=== PATIENT | male | born 1935 | race Caucasian/White ===

== ENCOUNTER 2018-10-13 10:20 | Day surgery (SDC) | payer MEDICARE, BC ==
[~2018-10-13] VITALS: Ht 182.9 cm; Wt 96.5 kg
[2018-10-13] VITALS (7 sets, daily range): BP systolic 151–159; BP diastolic 61–91
[~2018-10-13 10:20] MED LIST: LIDOcaine 1% w/EPI 1:100,000 30ml vial (MDV) ONE; ceFAZolin 1000mg inj ONE; fentaNYL/PF 50MCG/1 ML 2ML syringe ONE; midazolam 2 mg/2 ml injection ONE; vancomycin 1,000mg inj ONE
[2018-10-13] MEDS ORDERED: FLAX100015 PO (11:26)
[2018-10-13] MEDS ORDERED: FLO0.4C PO (11:27)
[2018-10-13] MEDS ORDERED: PANT40VI2 IV (11:28)
[2018-10-13] MEDS ORDERED: LYR75C PO (11:29)
[2018-10-13] MEDS ORDERED: MULT1TAB74 PO (11:30)
[2018-10-13] MEDS ORDERED: AMLO10TA4 PO (11:33)
[2018-10-13] MEDS ORDERED: UBID100C16 PO (11:34)
[2018-10-13] MEDS ORDERED: CLOP75TA15 PO (11:35)
[2018-10-13] MEDS ORDERED: ASPI-41 PO (11:35)
[2018-10-13] MEDS ORDERED: ATOR10TA87 PO (11:36)
[2018-10-13] MEDS ORDERED: OMEG-166 PO (11:37)
[2018-10-13] MEDS ORDERED: NIA500ERT PO (11:38)
[2018-10-13] MEDS ORDERED: HYDR12.55 PO (11:38)
[2018-10-13] MEDS ORDERED: METF500T PO (11:40)
[2018-10-13] MEDS ORDERED: RAMI10CA69 PO (11:40)
[2018-10-13] MEDS ORDERED: GLIM4TAB79 PO (11:42)
[2018-10-13] MEDS ORDERED: INSU100V9 SQ (11:42)
[2018-10-13 12:12] LABS: BASOPHILS % (AUTO) 0.5 % (0-1); EOSINOPHILS # (AUTO) 0.2 X10'3 (0-0.9); EOSINOPHILS % (AUTO) 1.8 % (0-6); HEMATOCRIT 44.8 % (42.0-52.0); HEMOGLOBIN 15.5 g/dl (14.0-17.9); LYMPHOCYTES # (AUTO) 1.7 X10'3 (1.1-4.8); MEAN CORPUSCULAR HEMOGLOBIN 29.2 PG (27.0-31.0); MEAN CORPUSCULAR HGB CONC 34.5 g/dL (33.0-36.5); MEAN CORPUSCULAR VOLUME 84.6 FL (78-98); MEAN PLATELET VOLUME 9.4 FL (7.4-10.4); MONOCYTES # (AUTO) 0.4 X10'3 (0-0.9); MONOCYTES % (AUTO) 4.9 % (2-12); NEUTROPHILS # (AUTO) 6.4 X10'3 (1.8-7.7); NEUTROPHILS % (AUTO) 73.8 % (42-75); PLATELET COUNT 181 X10'3 (140-440); RED CELL DISTRIBUTION WIDTH 14.6 % (11.5-14.5); WHITE BLOOD COUNT 8.7 X10'3 (4.5-11.0)
[2018-10-13 12:17] LABS: ALBUMIN 4.6 G/DL (3.4-5.0); ANION GAP 9 (8-16); BLOOD UREA NITROGEN 14 MG/DL (7-18); BUN/CREATININE RATIO 15.2 (5.4-32.0); CALCIUM 9.7 MG/DL (8.5-10.1); CHLORIDE 103 MMOL/L (99-107); CREATININE 0.92 MG/DL (0.60-1.10); GLUCOSE 144 MG/DL (70-104); POTASSIUM 4.1 MMOL/L (3.5-5.1); SODIUM 140 MMOL/L (135-145); TOTAL CARBON DIOXIDE 27.6 MMOL/L (24-32); eGFR 78 ML/MIN
[2018-10-13] MEDS ORDERED: cefazolin/dext.iso 2gm/100ml 100 ML IV ONE (13:28)
[2018-10-13] MEDS ORDERED: midazolam 2 mg/2 ml injection ONE (14:07)
[2018-10-13] MEDS ORDERED: normal saline 1000ml 1,000 ML IV SCH (15:55)
== END 2018-10-13 17:00 | disposition home or self-care (01) ==
LOC: SSTAY O 10:20
PROVIDERS: ATTEND Internal Medicine Cardiovascular Disease
DX: I44.2 Atrioventricular block, complete (principal); E78.5 Hyperlipidemia, unspecified; E11.9 Type 2 diabetes mellitus without complications; I25.10 Atherosclerotic heart disease of native coronary artery without angina pectoris; I10 Essential (primary) hypertension; Z98.890 Other specified postprocedural states; Z79.4 Long term (current) use of insulin; Z79.899 Other long term (current) drug therapy; Z95.5 Presence of coronary angioplasty implant and graft; Z83.3 Family history of diabetes mellitus; Z82.49 Family history of ischemic heart disease and other diseases of the circulatory system; Z88.1 Allergy status to other antibiotic agents; Z88.8 Allergy status to other drugs, medicaments and biological substances; Z88.7 Allergy status to serum and vaccine
CPT/HCPCS: 33208; 36415; 71046; 80048; 82948; 83735; 85025; 85610; 93005; 99152; 99153; C1785; C1894; C1898; J0690; J2250; J3010; J3370; J3490; J7030; A4565; A4620

== ENCOUNTER 2020-01-01 10:40 | Day surgery (SDC) | payer MEDICARE, BC ==
[2020-01-01] VITALS (10 sets, daily range): BP systolic 125–160; BP diastolic 55–91
[~2020-01-01] VITALS: Ht 182.9 cm; Wt 93.8 kg
[~2020-01-01 10:40] MED LIST changes: +AMLO10TA4 PO; +ASPI-41 PO; +ATOR10TA87 PO; +CLOP75TA15 PO; +FLAX100015 PO; +FLO0.4C PO; +GLIM4TAB7 PO; +HYDR12.55 PO; +INSU100V9 SQ; -LIDOcaine 1% w/EPI 1:100,000 30ml vial (MDV) ONE; +LYR75C PO; +METF500T PO; +MULT-620 PO; +NIA500ERT PO; +OMEG-166 PO; +PANT40VI2 IV; +RAMI10CA69 PO; +UBID100C16 PO; -ceFAZolin 1000mg inj ONE; -fentaNYL/PF 50MCG/1 ML 2ML syringe ONE; -midazolam 2 mg/2 ml injection ONE; -vancomycin 1,000mg inj ONE
[2020-01-01] MEDS ORDERED: VANCOMYCIN 1,500MG inj. 1,500 MG in normal saline 500ml IV soln 300 ML IV ONE (11:00)
[2020-01-01] MEDS ORDERED: cefazolin/dext.iso 2gm/50ml 50 ML IV ONE (11:00)
[2020-01-01 11:41] LABS: BASOPHILS % (AUTO) 0.2 % (0-1); EOSINOPHILS # (AUTO) 0.3 X10'3 (0-0.9); HEMATOCRIT 43.5 % (42.0-52.0); HEMOGLOBIN 14.9 g/dl (14.0-17.9); LYMPHOCYTES % (AUTO) 22.7 % (21-51); MEAN CORPUSCULAR HEMOGLOBIN 29.7 PG (27.0-31.0); MEAN CORPUSCULAR HGB CONC 34.3 g/dL (33.0-36.5); MEAN CORPUSCULAR VOLUME 86.7 FL (78-98); MEAN PLATELET VOLUME 9.2 FL (7.4-10.4); MONOCYTES # (AUTO) 0.3 X10'3 (0-0.9); NEUTROPHILS % (AUTO) 70.1 % (42-75); PLATELET COUNT 163 X10'3 (140-440); RED BLOOD COUNT 5.02 X10'6 (4.70-6.10); RED CELL DISTRIBUTION WIDTH 13.8 % (11.5-14.5); WHITE BLOOD COUNT 8.6 X10'3 (4.5-11.0)
[2020-01-01 11:44] LABS: ALBUMIN 4.1 G/DL (3.4-5.0); ANION GAP 11 (8-16); BLOOD UREA NITROGEN 15 MG/DL (7-18); BUN/CREATININE RATIO 18.1 (5.4-32.0); CHLORIDE 103 MMOL/L (99-107); CREATININE 0.83 MG/DL (0.60-1.10); GLUCOSE 170 MG/DL (70-104); MAGNESIUM 1.7 MG/DL (1.5-2.4); POTASSIUM 4.3 MMOL/L (3.5-5.1); SODIUM 138 MMOL/L (135-145); TOTAL CARBON DIOXIDE 23.7 MMOL/L (24-32); eGFR 88 ML/MIN
[2020-01-01 11:47] LABS: PARTIAL THROMBOPLASTIN TIME 29 SECONDS (22-32)
[2020-01-01] MEDS ORDERED: fentaNYL/PF 50MCG/1 ML 2ML syringe ONE ×2 (14:07→15:26)
[2020-01-01] MEDS ORDERED: midazolam 2 mg/2 ml injection ONE ×3 (14:07→15:27)
[2020-01-01] MEDS ORDERED: vancomycin 1,000mg inj ONE (14:08)
[2020-01-01] MEDS ORDERED: LIDOcaine 1% W/epiNEPHrine 1:100,000 20ml vial ONE (14:08)
[2020-01-01] MEDS ORDERED: proCHLORperazine 10 MG/2 ml inj ONE (14:32)
[2020-01-01] MEDS ORDERED: iohexol 350MG/ML 100ml bottle IV ONE (14:48)
[2020-01-01] MEDS ORDERED: normal saline 1000ml 1,000 ML IV ONE (16:45)
== END 2020-01-01 19:05 | disposition home or self-care (01) ==
LOC: SSTAY O 10:40
PROVIDERS: ATTEND Internal Medicine Cardiovascular Disease
DX: I44.2 Atrioventricular block, complete (principal); I42.8 Other cardiomyopathies; I47.2 Ventricular tachycardia; I49.8 Other specified cardiac arrhythmias; I25.119 Atherosclerotic heart disease of native coronary artery with unspecified angina pectoris; I48.91 Unspecified atrial fibrillation; Z95.0 Presence of cardiac pacemaker; N40.0 Benign prostatic hyperplasia without lower urinary tract symptoms; I10 Essential (primary) hypertension; E11.9 Type 2 diabetes mellitus without complications; Z95.1 Presence of aortocoronary bypass graft; Z79.01 Long term (current) use of anticoagulants; Z98.890 Other specified postprocedural states; Z72.89 Other problems related to lifestyle; Z88.7 Allergy status to serum and vaccine; Z88.1 Allergy status to other antibiotic agents; Z88.5 Allergy status to narcotic agent; Z88.8 Allergy status to other drugs, medicaments and biological substances; Z83.3 Family history of diabetes mellitus; Z80.9 Family history of malignant neoplasm, unspecified
CPT/HCPCS: 33225; 33229; 36415; 71045; 80048; 82948; 83735; 85025; 85610; 85730; 93005; 99152; 99153; C1769; C1887; C1894; C1900; C2621; J0780; J2250; J3010; J3370; J7030; Q9967; 33224; A4620; A6258

== ENCOUNTER 2020-07-18 12:28 | Day surgery (SDC) | payer MEDICARE, BC ==
[~2020-07-18] VITALS: Ht 182.9 cm; Wt 92.9 kg
[2020-07-18] VITALS (9 sets, daily range): BP systolic 131–157; BP diastolic 61–81
[2020-07-18] MEDS ORDERED: diphenhydrAMINE 25mg capsule PO PRN (13:05)
[2020-07-18] MEDS ORDERED: normal saline 1,000 ML IV SCH (13:05)
[2020-07-18] MEDS ORDERED: CINN500C15 PO (13:26)
[2020-07-18] MEDS ORDERED: vitamin D3 PO (13:26)
[2020-07-18] MEDS ORDERED: PANT-47 PO (13:26)
[2020-07-18] MEDS ORDERED: cranberry (13:26)
[2020-07-18] MEDS ORDERED: ATOR40TA PO (13:26)
[2020-07-18 13:44] LABS: BASOPHILS % (AUTO) 0.3 % (0-1); EOSINOPHILS # (AUTO) 0.1 X10'3 (0-0.9); EOSINOPHILS % (AUTO) 0.9 % (0-6); HEMATOCRIT 42.9 % (42.0-52.0); HEMOGLOBIN 14.6 g/dl (14.0-17.9); LYMPHOCYTES # (AUTO) 1.4 X10'3 (1.1-4.8); LYMPHOCYTES % (AUTO) 15.5 % (21-51); MEAN CORPUSCULAR HEMOGLOBIN 29.1 PG (27.0-31.0); MEAN CORPUSCULAR VOLUME 85.6 FL (78-98); MEAN PLATELET VOLUME 9.3 FL (7.4-10.4); MONOCYTES # (AUTO) 0.4 X10'3 (0-0.9); MONOCYTES % (AUTO) 4.4 % (2-12); NEUTROPHILS # (AUTO) 6.9 X10'3 (1.8-7.7); NEUTROPHILS % (AUTO) 78.9 % (42-75); PLATELET COUNT 163 X10'3 (140-440); RED BLOOD COUNT 5.01 X10'6 (4.70-6.10); WHITE BLOOD COUNT 8.7 X10'3 (4.5-11.0)
[2020-07-18 13:51] LABS: ALBUMIN 3.9 G/DL (3.4-5.0); ANION GAP 9 (8-16); BLOOD UREA NITROGEN 14 MG/DL (7-18); BUN/CREATININE RATIO 16.9 (5.4-32.0); CALCIUM 9.2 MG/DL (8.5-10.1); CHLORIDE 105 MMOL/L (99-107); CREATININE 0.83 MG/DL (0.60-1.10); GLUCOSE 166 MG/DL (70-104); MAGNESIUM 1.8 MG/DL (1.5-2.4); POTASSIUM 4.3 MMOL/L (3.5-5.1); SODIUM 140 MMOL/L (135-145); TOTAL CARBON DIOXIDE 25.7 MMOL/L (24-32); eGFR 88 ML/MIN
[2020-07-18] MEDS ORDERED: LIDOcaine 1% (10mg/ml)w/preservative injection 20ml MDV ONE (14:01)
[2020-07-18] MEDS ORDERED: fentaNYL/PF 50MCG/1 ML 2ML syringe ONE (14:01)
[2020-07-18] MEDS ORDERED: midazolam 1 mg/ML 2ml injection ONE (14:01)
[2020-07-18] MEDS ORDERED: heparin 1,000unit/ml 10ml vial 10 ML ONE (14:01)
[2020-07-18] MEDS ORDERED: iohexol 350MG/ML 100ml bottle IV ONE (14:02)
[2020-07-18] MEDS ORDERED: ondansetron/PF 4mg/2ml inj IV PRN (16:00)
[2020-07-18] MEDS ORDERED: proCHLORperazine 10 MG/2 ml inj IV PRN (16:00)
[2020-07-18] MEDS ORDERED: HYDROcodone/acetaminophen 10/325mg tab PO PRN (16:00)
[2020-07-18] MEDS ORDERED: OXAZEpam 15mg capsule PO PRN (16:00)
[2020-07-18] MEDS ORDERED: HYDROcodone/acetaminophen 5mg/325mg tablet PO PRN (16:00)
== END 2020-07-18 18:45 | disposition home or self-care (01) ==
LOC: SSTAY O 12:28
PROVIDERS: ATTEND Internal Medicine Cardiovascular Disease
DX: R94.39 Abnormal result of other cardiovascular function study (principal); I25.119 Atherosclerotic heart disease of native coronary artery with unspecified angina pectoris; T82.855A Stenosis of coronary artery stent, initial encounter; I25.82 Chronic total occlusion of coronary artery; E78.5 Hyperlipidemia, unspecified; N40.0 Benign prostatic hyperplasia without lower urinary tract symptoms; I10 Essential (primary) hypertension; E11.9 Type 2 diabetes mellitus without complications; I25.2 Old myocardial infarction; Z88.7 Allergy status to serum and vaccine; Z79.899 Other long term (current) drug therapy; Z79.01 Long term (current) use of anticoagulants; Z79.82 Long term (current) use of aspirin; Z79.84 Long term (current) use of oral hypoglycemic drugs; Z88.1 Allergy status to other antibiotic agents; Z88.5 Allergy status to narcotic agent; Z88.8 Allergy status to other drugs, medicaments and biological substances; Z95.1 Presence of aortocoronary bypass graft; Z72.89 Other problems related to lifestyle; Z98.890 Other specified postprocedural states; Z83.3 Family history of diabetes mellitus; Z81.8 Family history of other mental and behavioral disorders; Z80.9 Family history of malignant neoplasm, unspecified; Y83.8 Other surgical procedures as the cause of abnormal reaction of the patient, or of later complication, without mention of misadventure at the time of the procedure; Y92.89 Other specified places as the place of occurrence of the external cause
CPT/HCPCS: 36415; 80048; 82948; 83735; 85025; 85610; 93005; 93459; 99152; C1760; C1769; C1894; J1644; J2001; J2250; J3010; J7030; Q0163; Q9967; 99153; A4620; A6258